=== PATIENT | male | born 1970 | race African-American/Black ===

== ENCOUNTER 2019-03-04 16:25 | Inpatient (IN) | payer MEDICAID ==
[~2019-03-04] VITALS: Ht 195.6 cm; Wt 80.7 kg
[2019-03-04] MEDS ORDERED: PIPERACILLIN/TAZ 3.375G PREMIX 50 ML IV ONE (20:30)
[2019-03-04] MEDS ORDERED: VANCOMYCIN 1 G PREMIX 200 ML IV ONE (20:30)
[2019-03-04] MEDS ORDERED: SODIUM CHLORIDE 0.9% 1000ML BAG (SEPSIS BOLUS) IV ONE (20:30)
[2019-03-04] MEDS ORDERED: TETANUS, DIPHTHERIA, PERTUSSIS VAC/PF 0.5ML (>7YR OLD) IM ONE (21:00)
[2019-03-04 21:51] LABS: BASOPHILS % 0.6 % (0.0-2.0); EOSINOPHILS % 1.2 % (0.0-5.0); HEMATOCRIT. 42.5 % (42.0-52.0); HEMOGLOBIN. 14.8 g/dL (14.0-18.0); LYMPHOCYTES % 18.9 % (20.0-50.0); MEAN CORPUSCULAR HEMOGLOBIN 30.9 pg (28.0-32.0); MEAN CORPUSCULAR VOLUME 88.7 fL (80.0-94.0); MEAN PLATELET VOLUME 7.6 fl (7.4-10.4); NEUTROPHILS % 72.3 % (40.0-76.0); PLATELET 329 x1000/uL (130-400); RED BLOOD CELL COUNT 4.79 mill/uL (4.7-6.1); RED CELL DISTRIBUTION WIDTH 12.7 % (11.6-14.6)
[2019-03-04 21:55] LABS: CHLORIDE 105 mEq/L (98-107)
[2019-03-04 21:57] LABS: PROTHROMBIN TIME 10.7 sec (9.6-11.0)
[2019-03-05] MEDS ORDERED: NA PHOS,M-B/NA PHOS,DI-BA ENEMA 118ML PR PRN (02:30)
[2019-03-05] MEDS ORDERED: PIPERACILLIN/TAZ 3.375G PREMIX 50 ML IV SCH (02:30)
[2019-03-05] MEDS ORDERED: HYDROCODONE/ACETAMINOPHEN 5/325MG TABLET PO PRN (02:30)
[2019-03-05] MEDS ORDERED: LORAZEPAM 2MG/ML CPJ IV PRN (02:30)
[2019-03-05] MEDS ORDERED: GUAIFENESIN 200MG/10ML SUGAR FREE UDC PO PRN (02:30)
[2019-03-05] MEDS ORDERED: DOCUSATE SODIUM 100MG CAPSULE PO PRN (02:30)
[2019-03-05] MEDS ORDERED: MAGNESIUM/ALUMINUM HYDROXIDE/SIMETHICONE 30ML UDC PO PRN (02:30)
[2019-03-05] MEDS ORDERED: MORPHINE SULFATE 2 MG/ML CPJ (NOT FOR IM USE) IV PRN (02:30)
[2019-03-05] MEDS ORDERED: CLONIDINE 0.1MG TABLET PO PRN (02:30)
[2019-03-05] MEDS ORDERED: IPRATROPIUM/ALBUTEROL 0.5-3(2.5)MG/3ML NEB NEB PRN (02:30)
[2019-03-05] MEDS ORDERED: ACETAMINOPHEN 325MG TABLET PO PRN (02:30)
[2019-03-05] MEDS ORDERED: DIPHENHYDRAMINE 50MG/ML VIAL IV PRN (02:30)
[2019-03-05] MEDS ORDERED: ONDANSETRON HCL 4MG/2ML INJ IV PRN (02:30)
[2019-03-05 03:20] VITALS: BP 108/65
[2019-03-05] MEDS: PIPERACILLIN/TAZOBACTAM 3.375 G in DEXT 5% WATER 100 ML IV SCH ×2 (05:01→14:48)
[2019-03-05 08:00] VITALS: BP 104/63
[2019-03-05] MEDS: ENOXAPARIN 40MG/0.4ML SYR SUBCUT SCH (09:19)
[2019-03-05 09:53] LABS: CHLORIDE 108 mEq/L (98-107)
[2019-03-05] MEDS: VANCOMYCIN 1250MG in DEXTROSE 5% WATER 250ML IV SCH (10:46)
[2019-03-05 12:00] VITALS: BP 103/68
[2019-03-05 16:00] VITALS: BP 101/70
[2019-03-05 20:00] VITALS: BP 107/67
[2019-03-06] VITALS: BP 118/70
[2019-03-06] MEDS: PIPERACILLIN/TAZOBACTAM 3.375 G in DEXT 5% WATER 100 ML IV SCH ×2 (00:12→06:52)
[2019-03-06] MEDS: VANCOMYCIN 1250MG in DEXTROSE 5% WATER 250ML IV SCH ×2 (00:12→09:30)
[2019-03-06 04:00] VITALS: BP 116/76
[2019-03-06 05:44] LABS: CHLORIDE 107 mEq/L (98-107)
[2019-03-06 05:54] LABS: LDL CHOLESTEROL 84 mg/dL (5-100)
[2019-03-06 05:56] LABS: HDL CHOLESTEROL 55 mg/dL (40-59)
[2019-03-06 06:08] LABS: BASOPHILS % 0.4 % (0.0-2.0); EOSINOPHILS % 2.2 % (0.0-5.0); HEMATOCRIT. 35.1 % (42.0-52.0); HEMOGLOBIN. 12.5 g/dL (14.0-18.0); LYMPHOCYTES % 23.2 % (20.0-50.0); MEAN CORPUSCULAR HEMOGLOBIN 31.5 pg (28.0-32.0); MEAN CORPUSCULAR VOLUME 88.6 fL (80.0-94.0); MEAN PLATELET VOLUME 7.8 fl (7.4-10.4); MONOCYTES % 8.9 % (2.0-8.0); NEUTROPHILS % 65.3 % (40.0-76.0); PLATELET 284 x1000/uL (130-400); RED BLOOD CELL COUNT 3.97 mill/uL (4.7-6.1); RED CELL DISTRIBUTION WIDTH 12.5 % (11.6-14.6)
[2019-03-06 08:00] VITALS: BP 95/46
[2019-03-06] MEDS: ENOXAPARIN 40MG/0.4ML SYR SUBCUT SCH (09:30)
[2019-03-06 09:54] VITALS: BP 104/63
== END 2019-03-06 10:44 | disposition home or self-care (01) | DRG 383 ==
LOC: ER 16:25 → 6EST 03-05 00:26 → EDBEDREQ 03-05 00:50 → ENRESERV 03-05 02:25
PROVIDERS: ADMIT Internal Medicine; ATTEND Internal Medicine
DX: L03.116 Cellulitis of left lower limb (principal); R65.10 Systemic inflammatory response syndrome (SIRS) of non-infectious origin without acute organ dysfunction; L03.115 Cellulitis of right lower limb; Z79.899 Other long term (current) drug therapy
CPT/HCPCS: 36415; 80048; 80053; 80061; 80202; 83605; 84145; 84484; 85025; 87070; 87077; 90715; 93005; 96365; 99285; J1650; J2543; J3370; J7030; J7040; J7060

== ENCOUNTER 2020-09-29 21:16 | Emergency (ER) | payer MEDICAID ==
[~2020-09-29] VITALS: Ht 165.1 cm; Wt 66.0 kg
[2020-09-29] MEDS ORDERED: IBUPROFEN 600MG TABLET PO ONE (23:00)
[2020-09-29] MEDS ORDERED: ACETAMINOPHEN 325MG TABLET PO ONE (23:00)
[2020-09-29] MEDS ORDERED: ACET-2708 MT (23:52)
[2020-09-29] MEDS ORDERED: NAPR-1176 MT (23:52)
[2020-09-30 01:12] VITALS: BP 114/68
== END 2020-09-30 01:13 | disposition home or self-care (01) ==
LOC: ER 21:16
DX: M25.511 Pain in right shoulder (principal)
CPT/HCPCS: 73030; 99283